=== PATIENT | female | born 1995 | race Caucasian/White ===

== ENCOUNTER 2018-01-06 23:45 | Emergency (ER) | payer MEDICAID ==
[2018-01-07] MEDS ORDERED: Ibuprofen 600 MG Tab PO ONE (00:19)
--- NOTE | 2018-01-07 00:21 | EDM.PDOC ---
ED HPI GENERAL MEDICAL PROBLEM - General Chief Complaint: Lower Extremity Injury/Pain Stated Complaint: [facility] Time Seen by Provider: 01/07/18 00:11 Source of Information: Reports: Patient History Limitations: Reports: No Limitations - History of Present Illness INITIAL COMMENTS - FREE TEXT/NARRATIVE: The patient states that she was walking home from work around 23:00, when she turned to look behind her, twisting her left ankle. She presents with pain to the lateral malleolus. She is otherwise uninjured. No prior similar injury. The patient does not have a PCP. Left Ankle Pain Score (Numeric/FACES): 8 - Related Data Allergies Allergy/AdvReac Type Severity Reaction Status Date / Time No Known Allergies Allergy Verified 01/07/18 00:01 Home Meds: Home Meds . 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) (Ovarian cysts) Endocrine/Metabolic History: Reports: Obesity/BMI 30+ - Past Surgical History HEENT Surgical History: Reports: Tonsillectomy Female Surgical 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 (See Below) (Ovarian cystectomy x 1) Social & Family History - Family History Family Medical History: Noncontributory - Tobacco Use Smoking Status *Q: Current Every Day Smoker Years of Tobacco use: 6 Packs/Tins Daily: 0.2 - Alcohol Use Alcohol Use History: Yes Alcohol Use Frequency: Socially - Recreational Drug Use Recreational Drug Use: Yes Drug Use in Last 12 Months: Yes Recreational Drug Type: Reports: Marijuana/Hashish (last smoked late Nov 2017) - Living Situation & Occupation Living situation: Reports: , with Spouse, with Family (3 kids) Occupation: Employed ([id number]) Review of Systems - Review of Systems Review Of Systems: ROS reveals no pertinent complaints other than HPI. ED EXAM, GENERAL - Physical Exam Exam: See Below Exam Limited By: No Limitations General Appearance: Alert, WD/WN, No Apparent Distress Extremities: Other (No visible abnormality to the left ankle, such as swelling, erythema, ecchymosis, or abrasion. The patient reports tenderness over the lateral malleolus, with less tenderness to the anterior syndesmosis. No tenderness to the medial malleolus or posterior syndesmosis. The patient reports pain to the lateral malleolus area with PROM of the ankle. Neurovascular status of the left lower extremity is intact.) Course - Vital Signs Last Recorded V/S: Last Vital Signs Temp 36.4 C 01/06/18 23:52 Pulse 111 H 01/06/18 23:52 Resp 16 01/06/18 23:52 BP 136/82 01/06/18 23:52 Pulse Ox 100 01/06/18 23:52 - Orders/Labs/Meds Orders: Active Orders 24 hr Category Date Time Status Ankle Min 3V Lt [CR] Stat Exams 01/07/18 00:18 Taken Meds: Medications Discontinued Medications Generic Name Dose Route Start Last Admin Trade Name Dilan PRN Reason Stop Dose Admin Ibuprofen 600 mg 01/07/18 00:19 01/07/18 00:24 Motrin PO 01/07/18 00:20 600 mg ONETIME ONE Administration - Re-Assessments/Exams Free Text/Narrative Re-Assessment/Exam: 01/07/18 00:40 4-view radiographs of the left ankle appear to be normal. No fractures or dislocations identified. Formal read per the Radiologist pending. 01/07/18 00:41 As the patient is complaining of pain with weightbearing, I have ordered an air splint. Departure - Departure Time of Disposition: 00:41 Disposition: Home, Self-Care 01 Condition: Good Clinical Impression: Left ankle sprain - Discharge Information Referrals: Ford Persaud MD [Physician] - Forms: ED Department Discharge Additional Instructions: You were seen in the emergency room after twisting your left ankle. Workup in the ER included x-rays of your left ankle, which returned normal. No broken bones or dislocations. You have likely sprained your left ankle. You have been placed into an air splint. Apply this each morning and remove at bedtime. Wear it for about one week, then begin walking on your ankle without the air splint, even if it is sore. Take [id number] ibuprofen as needed for discomfort. If your ankle continues to hurt after 2 weeks, please follow-up with the Orthopedic Surgeon Dr. Persaud. If any other problems, please do not hesitate to return to the ER. - My Orders Last 24 Hours: My Active Orders 01/07/18 00:18 Ankle Min 3V Lt [CR] Stat - Assessment/Plan Last 24 Hours: My Active Orders 01/07/18 00:18 Ankle Min 3V Lt [CR] Stat
--- NOTE | 2018-01-07 08:44 | CR ---
Left ankle: Four views of the left ankle were obtained. Comparison: No prior study. Spur noted at the attachment of the Achilles tendon to the calcaneus. Ankle mortise is symmetric. No fracture, dislocation or other bony abnormality is seen. Impression: 1. Incidental calcaneal spur. 2. Nothing acute is appreciated on left ankle study. Diagnostic code #2
== END 2018-01-07 01:18 | disposition home or self-care (01) ==
LOC: JD.ED 23:45
DX: S93.402A Sprain of unspecified ligament of left ankle, initial encounter (principal); E66.9 Obesity, unspecified; F17.210 Nicotine dependence, cigarettes, uncomplicated; X50.1XXA Overexertion from prolonged static or awkward postures, initial encounter; Y93.01 Activity, walking, marching and hiking; Y92.009 Unspecified place in unspecified non-institutional (private) residence as the place of occurrence of the external cause
CPT/HCPCS: 73610; 99284; A9270; 99283

== ENCOUNTER 2018-04-07 01:06 | Emergency (ER) | payer OTHER, MEDICAID ==
[2018-04-07] MEDS ORDERED: Sodium Chloride 0.9% 10 ML Syringe FLUSH PRN (01:21)
[2018-04-07] MEDS ORDERED: HYDROmorphone 0.5 MG/0.5 ML SYRINGE IVPUSH ONE ×2 (01:26→03:28)
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
[2018-04-07] MEDS ORDERED: Sodium Chloride 0.9% 1,000 ML IV SCH (01:30)
[2018-04-07] MEDS ORDERED: Ketorolac 30 MG/ML SDV IVPUSH ONE (03:28)
--- NOTE | 2018-04-07 09:18 | CT ---
CT abdomen and pelvis Technique: Multiple axial sections were obtained from above the dome of the diaphragm inferiorly through the pubic symphysis. Intravenous contrast was utilized. No oral contrast has been given. Comparison: No prior CT exam. Findings: Visualized lung bases show nothing acute. Liver is generous in size and shows diffuse fatty infiltration. Hyperdense nodule is identified within the upper right lobe of the liver measuring approximately 1.4 cm. This may represent flash filling of a hemangioma. Given the patient's age as well as this being the only abnormality this is felt to be benign. Spleen measures slightly prominent at 14.4 cm. Adrenal glands show no nodule. Pancreas is normal. Gallbladder contains no calcified gallstones. Adrenal glands show no nodule. Kidneys show symmetric contrast enhancement without hydronephrosis. Small nonobstructing calculus measuring less than 5 mm seen within the left kidney. Aorta shows no aneurysmal dilatation. Small fat-containing umbilical hernia is seen. No retroperitoneal adenopathy is seen. Essure devices are incidentally noted. No pelvic mass or adenopathy is seen. Appendix not definitely visualized. Delayed images show contrast within the bladder. Small bony density seen off the inferior's aspect of the sacrum at the sacroiliac joint on the right side possibly due to small fracture. Sclerosis seen within both sacroiliac joints felt to be benign and incidental. Impression: 1. Small bony density off the inferior right sacrum at the sacroiliac joint possibly due to fracture. 2. Other findings which are felt to be incidental as noted above. Diagnostic code #3 I agree with preliminary report from [facility], finalized at 04/07/18, 4:14 AM Central Time
== END 2018-04-07 04:10 | disposition home or self-care (01) ==
LOC: JD.ED 01:06
DX: S38.1XXA Crushing injury of abdomen, lower back, and pelvis, initial encounter (principal); S32.10XA Unspecified fracture of sacrum, initial encounter for closed fracture; Z88.0 Allergy status to penicillin; W23.0XXA Caught, crushed, jammed, or pinched between moving objects, initial encounter; Y92.481 Parking lot as the place of occurrence of the external cause
CPT/HCPCS: 36415; 74177; 80053; 83690; 84703; 85025; 96361; 96374; 96375; 96376; 99284; J1170; J1885; J7040; J7050

== ENCOUNTER 2018-04-29 12:37 | Emergency (ER) | payer MEDICAID ==
[2018-04-29] MEDS ORDERED: Sodium Chloride 0.9% 10 ML Syringe FLUSH PRN (12:58)
[2018-04-29] MEDS ORDERED: Ketorolac 30 MG/ML SDV IVPUSH ONE (13:03)
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
--- NOTE | 2018-04-29 15:21 | CR ---
Chest: Two views of the chest were obtained. Comparison: No prior chest x-ray. Heart size and mediastinum are within normal limits. Lungs are clear. Incidental azygos lobe is noted. Bony structures appear within normal limits for the patient's age. Impression: 1. Nothing acute is seen on two-view chest x-ray. Diagnostic code #1
[2018-04-29] MEDS ORDERED: Alum Hydrox/Mag Hydrox/Simeth 30 ML, Lidocaine 2% 15 ML PO ONE ×2 (15:27)
[2018-04-29] MEDS ORDERED: Dicyclomine 20 MG/2 ML SDV IM ONE (15:27)
[2018-04-29] MEDS ORDERED: Ondansetron 4 MG/2 ML SDV IVPUSH ONE (15:29)
== END 2018-04-29 17:16 | disposition home or self-care (01) ==
LOC: JD.ED 12:37
DX: R07.2 Precordial pain (principal); R10.9 Unspecified abdominal pain; Z88.0 Allergy status to penicillin; Z79.899 Other long term (current) drug therapy
CPT/HCPCS: 36415; 71046; 80053; 81001; 83690; 84443; 84484; 84703; 85025; 85379; 93005; 96372; 96374; 96375; 99285; A9270; J0500; J1885; J2405; J7050; 93010; 99284

== ENCOUNTER 2018-05-19 14:16 | Emergency (ER) | payer MEDICAID ==
[2018-05-19] MEDS ORDERED: Ondansetron 4 MG/2 ML SDV IVPUSH ONE ×2 (15:01→19:26)
[2018-05-19] MEDS ORDERED: Sodium Chloride 0.9% 1,000 ML IV SCH ×2 (15:15→16:30)
[2018-05-19] MEDS ORDERED: Ketorolac 30 MG/ML SDV IVPUSH SCH (15:15)
[2018-05-19] MEDS: Sodium Chloride 0.9% 10 ML Syringe FLUSH PRN ×2 (15:18→17:43)
--- NOTE | 2018-05-19 16:01 | EDM.PDOC ---
ED HPI GENERAL MEDICAL PROBLEM - General Chief Complaint: General Stated Complaint: [facility] Time Seen by Provider: 05/19/18 14:50 Source of Information: Reports: Patient, RN Notes Reviewed - History of Present Illness INITIAL COMMENTS - FREE TEXT/NARRATIVE: 22 year old female started with nausea last evening, than diarrhea, than vomiting. Continues to feel ill today. Now having abd pain, more R upper abd than R lower abd. Diarrhea is watery. No one else ill around home. no fever. Mouth feels dry. Continus with severe nauesea, abd pain with cramping. Right Upper Abdominal Pain Score (Numeric/FACES): 10 - Related Data Allergies Allergy/AdvReac Type Severity Reaction Status Date / Time Penicillins Allergy Hives Verified 05/19/18 14:22 Home Meds: Home Meds Cyclobenzaprine [Flexeril] 10 mg PO Q8H PRN 04/29/18 [History] Ibuprofen 800 mg PO Q6H PRN 04/29/18 [History] Acetaminophen/HYDROcodone [[place] 325-5 MG] 1 tab PO Q6H PRN #10 tablet 05/19/18 [Rx] Ciprofloxacin HCl [Cipro] 500 mg PO Q12HR #10 tablet 05/19/18 [Rx] traMADol [Ultram] 50 mg PO Q6H PRN 05/19/18 [History] Past Medical History - Past Health History Medical/Surgical History: Denies Medical/Surgical History HEENT History: Reports: None Genitourinary 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 (See Below) Other Genitourinary History: ovarian cysts 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 MENDER 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 (See Below) Other FINISH MENDER History: ovarian cyst Musculoskeletal History: Reports: Fracture Other Musculoskeletal History: ankle and tailbone Endocrine/Metabolic History: Reports: Obesity/BMI 30+ - Past Surgical History HEENT Surgical History: Reports: Tonsillectomy Female Surgical 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 (See Below) Musculoskeletal Surgical History: Reports: None Social & Family History - Family History Family Medical History: Noncontributory - Tobacco Use Smoking Status *Q: Current Some Day Smoker Years of Tobacco use: 11 Packs/Tins Daily: 0.1 - Caffeine Use Caffeine Use: Reports: Coffee, Soda - Recreational Drug Use Recreational Drug Use: No - Living Situation & Occupation Living situation: Reports: , with Spouse, with Family (3 kids) Occupation: Employed ([employer]) ED ROS GENERAL - Review of Systems Review Of Systems: See Below Constitutional: Reports: Chills. Denies: Fever HEENT: Reports: No Symptoms Respiratory: Denies: Shortness of Breath, Pleuritic Chest Pain, Cough Cardiovascular: Denies: Chest Pain GI/Abdominal: Reports: Abdominal Pain, Diarrhea, Nausea, Vomiting Musculoskeletal: Reports: Other (achiness) Skin: Reports: No Symptoms Neurological: Reports: Dizziness. Denies: Headache ED EXAM, GENERAL - Physical Exam Exam: See Below General Appearance: Alert, Moderate Distress Eye Exam: Bilateral Eye: PERRL Throat/Mouth: Normal Inspection, Other (oral mucosa mildly dry) Head: Normocephalic Neck: Supple, Full Range of Motion Respiratory/Chest: No Respiratory Distress, Lungs Clear, Normal Breath Sounds Cardiovascular: Tachycardia GI/Abdominal: Soft, Rebound (mild), Tender (diffuse tenderness upper and lower abd, more tender RLQ). No: Guarding Back Exam: No: CVA Tenderness (L), CVA Tenderness (R) Extremities: Normal Inspection, Normal Range of Motion Neurological: Alert, Oriented, No Motor/Sensory Deficits Skin Exam: Warm, Dry, Normal Color Course - Vital Signs Last Recorded V/S: Last Vital Signs Temp 99.1 F 05/19/18 14:20 Pulse 112 H 05/19/18 14:20 Resp 16 05/19/18 14:20 BP 145/94 H 05/19/18 14:20 Pulse Ox 99 05/19/18 14:20 - Orders/Labs/Meds Labs: Laboratory Tests 05/19/18 05/19/18 05/19/18 Range/Units 15:15 15:15 15:15 WBC 10.29 H (3.98-10.04) K/mm3 RBC 5.15 (3.98-5.22) M/mm3 Hgb 14.5 (11.2-15.7) gm/L Hct 43.6 (34.1-44.9) % MCV 84.7 (79.4-94.8) fl MCH 28.2 (25.6-32.2) pg MCHC 33.3 (32.2-35.5) g/dl RDW Std Deviation 40.9 (36.4-46.3) fL Plt Count 283 (182-369) K/mm3 MPV 9.4 (9.4-12.3) fl Neut % (Auto) 59.0 (34.0-71.1) % Lymph % (Auto) 29.3 (19.3-51.7) % [place] % (Auto) 6.4 (4.7-12.5) % Eos % (Auto) 4.9 (0.7-5.8) Baso % (Auto) 0.2 (0.1-1.2) % Neut # (Auto) 6.08 (1.56-6.13) K/mm3 Lymph # (Auto) 3.01 (1.18-3.74) K/mm3 [place] # (Auto) 0.66 H (0.24-0.36) K/mm3 Eos # (Auto) 0.50 H (0.04-0.36) K/mm3 Baso # (Auto) 0.02 (0.01-0.08) K/mm3 Sodium 138 (136-145) mEq/L Potassium 4.3 (3.5-5.1) mEq/L Chloride 106 (98-107) mEq/L Carbon Dioxide 22 (21-32) mEq/L Anion Gap 14.3 (5-15) BUN 13 (7-18) mg/dL Creatinine 0.8 (0.55-1.02) mg/dL Est Cr Clr Drug Dosing 81.82 mL/min Estimated GFR (MDRD) > 60 (>60) mL/min BUN/Creatinine Ratio 16.3 (14-18) Glucose 83 (74-106) mg/dL Calcium 8.8 (8.5-10.1) mg/dL Total Bilirubin 0.6 (0.2-1.0) mg/dL AST 32 (15-37) U/L ALT 56 (14-59) U/L Alkaline Phosphatase 55 (46-116) U/L C-Reactive Protein 0.5 (<1.0) mg/dL Total Protein 7.4 (6.4-8.2) g/dl Albumin 3.8 (3.4-5.0) g/dl Globulin 3.6 gm/dL Albumin/Globulin Ratio 1.1 (1-2) Meds: Medications Discontinued Medications Generic Name Dose Route Start Last Admin Trade Name Freq PRN Reason Stop Dose Admin Diatrizoate Meglum/Diatrizoate Sod 90 ml 05/19/18 16:34 05/19/18 17:43 Gastrografin 37% PO 05/19/18 16:35 90 ml ONETIME ONE Administration Diphenhydramine HCl 25 mg 05/19/18 20:36 05/19/18 20:42 Benadryl PO 05/19/18 20:37 25 mg ONETIME ONE Administration Hydromorphone HCl 0.5 mg 05/19/18 16:24 05/19/18 16:53 Dilaudid IVPUSH 05/19/18 16:25 0.5 mg ONETIME ONE Administration Hydromorphone HCl 0.5 mg 05/19/18 19:26 05/19/18 19:44 Dilaudid IVPUSH 05/19/18 19:27 0.5 mg ONETIME ONE Administration Sodium Chloride 1,000 mls @ 999 mls/hr 05/19/18 15:15 05/19/18 15:19 Normal Saline IV 999 mls/hr ONETIME EDINSON Administration Sodium Chloride 1,000 mls @ 150 mls/hr 05/19/18 16:30 05/19/18 16:53 Normal Saline IV 150 mls/hr ASDIRECTED EDINSON Administration Iopamidol 125 ml 05/19/18 16:34 05/19/18 17:43 Isovue-300 (61%) IVPUSH 05/19/18 16:35 125 ml ONETIME ONE Administration Ketorolac Tromethamine 30 mg 05/19/18 15:15 05/19/18 15:19 Toradol IVPUSH 30 mg ONETIME EDINSON Administration Metoclopramide HCl 5 mg 05/19/18 16:24 05/19/18 16:52 Reglan IVPUSH 05/19/18 16:25 5 mg ONETIME ONE Administration Ondansetron HCl 4 mg 05/19/18 15:01 05/19/18 15:19 Zofran IVPUSH 05/19/18 15:02 4 mg ONETIME ONE Administration Ondansetron HCl 4 mg 05/19/18 19:26 05/19/18 19:43 Zofran IVPUSH 05/19/18 19:27 4 mg ONETIME ONE Administration Sodium Chloride 10 ml 05/19/18 15:01 05/19/18 17:43 Saline Flush FLUSH 10 ml ASDIRECTED PRN Administration Keep Vein Open Sodium Chloride 10 ml 05/19/18 16:34 05/19/18 19:44 Saline Flush FLUSH 05/19/18 16:35 10 ml ONETIME ONE Administration - Re-Assessments/Exams Free Text/Narrative Re-Assessment/Exam: 05/19/18 19:40 CT of abd pelvis neg for appendicitis, does show fluid in the colon, mild colitis. Have treated with nausea, pain meds, IV fluids, discharge instr. as documented. Departure - Departure Time of Disposition: 16:19 Disposition: Home, Self-Care 01 Condition: Fair Clinical Impression: Colitis Abdominal pain Qualifiers: Abdominal location: generalized Qualified Code(s): R10.84 - Generalized abdominal pain - Discharge Information Prescriptions: Ciprofloxacin HCl [Cipro] 500 mg PO Q12HR #10 tablet Acetaminophen/HYDROcodone [[place] 325-5 MG] 1 tab PO Q6H PRN #10 tablet PRN Reason: Pain Instructions: Abdominal Pain, Adult, Colitis Referrals: Yvrose Chan PA-C [Primary Care Provider] - Forms: ED Department Discharge Additional Instructions: clear liquids for the next 24 hours, than careful bland diet as tolerated, cipro antibiotic 500 mg twice daily for 5 days, begin probiotic and take that twice daily for 1 week. tylenol for mild to moderate pain or hydrocodone if needed for severe pain. Do not take tylenol and hydrcodone at the same time. Do not drive or work when taking hydrocodone. Follow up clinic if not much better within 2 to 3 days as expected.
[2018-05-19] MEDS ORDERED: Metoclopramide 10 MG/2 ML SDV IVPUSH ONE (16:24)
[2018-05-19] MEDS ORDERED: HYDROmorphone 0.5 MG/0.5 ML SYRINGE IVPUSH ONE ×2 (16:24→19:26)
[2018-05-19] MEDS ORDERED: Diatrizoate Meglumine/Diatrizoate Sodium 37% 120 ML Bottle PO ONE (16:34)
[2018-05-19] MEDS ORDERED: Iopamidol 612 MG/ML 150 ML Bottle IVPUSH ONE (16:34)
[2018-05-19] MEDS ORDERED: Sodium Chloride 0.9% 10 ML Syringe FLUSH ONE (16:34)
[2018-05-19] MEDS ORDERED: diphenhydrAMINE 25 MG Cap PO ONE (20:36)
--- NOTE | 2018-05-20 09:20 | CT ---
CT abdomen and pelvis Technique: Multiple axial sections were obtained from above the dome of the diaphragm inferiorly through the pubic symphysis. Intravenous and oral contrast was utilized. Comparison: Previous CT abdomen and pelvis exam of 04/07/18. Findings: Visualized lung bases show nothing acute. Fatty infiltration noted within the liver. No focal abnormality is appreciated within the liver. Spleen appears within normal limits. Adrenal glands show no nodule. Kidneys show symmetric contrast enhancement without hydronephrosis or mass. Small nonobstructing stone noted within the lower left kidney which remains stable. Pancreas is within normal limits. Gallbladder contains no calcified gallstones. Aorta shows no aneurysmal dilatation. No retroperitoneal adenopathy is seen. Appendix not visualized. No free fluid or inflammatory change is seen. Slight amount of fluid seen within the colon or possibly more liquid stool. This is most likely incidental. Bone window settings were reviewed which appear within normal limits for the patient's age. Incidental fat containing umbilical hernia is noted. Impression: 1. Incidental findings as noted above. Nothing acute is appreciated on CT study of the abdomen and pelvis. Agree with preliminary report issued by [facility] finalized on 05/19/18, 7:30 PM Central Time Diagnostic code #2
== END 2018-05-19 20:45 | disposition home or self-care (01) ==
LOC: JD.ED 14:16
DX: K52.9 Noninfective gastroenteritis and colitis, unspecified (principal); F17.210 Nicotine dependence, cigarettes, uncomplicated; Z88.0 Allergy status to penicillin
CPT/HCPCS: 36415; 74177; 80053; 85025; 86140; 96361; 96374; 96375; 96376; 99285; A9270; J1170; J1885; J2405; J2765; J7040; J7050; Q9963; Q9967; 99284

== ENCOUNTER 2018-10-28 01:02 | Emergency (ER) | payer MEDICAID, OTHER ==
[2018-10-28] MEDS ORDERED: Sodium Chloride 0.9% 1,000 ML IV SCH (01:15)
[2018-10-28] MEDS ORDERED: methylPREDNISolone Sodium Succinate 125 MG/2 ML SDV IVPUSH ONE (01:16)
[2018-10-28] MEDS ORDERED: diphenhydrAMINE 50 MG/ML SDV IVPUSH ONE ×2 (01:16→02:01)
[2018-10-28] MEDS ORDERED: Famotidine 20 MG/2 ML SDV IVPUSH ONE (01:16)
[2018-10-28] MEDS ORDERED: HYDROmorphone 1 MG/ML Syringe IVPUSH ONE (01:17)
[2018-10-28] MEDS ORDERED: Metoclopramide 10 MG/2 ML SDV IVPUSH ONE (01:18)
--- NOTE | 2018-10-28 01:56 | EDM.PDOC ---
ED HPI GENERAL MEDICAL PROBLEM - General Chief Complaint: Abdominal Pain Stated Complaint: [facility] Time Seen by Provider: 10/28/18 01:15 Source of Information: Reports: Patient History Limitations: Reports: No Limitations - History of Present Illness INITIAL COMMENTS - FREE TEXT/NARRATIVE: 23-year-old female brought to the ED per ambulance. She has diffuse pruritus of her skin and is been scratching for almost 12 hours. She states symptoms started shortly after noon today. She can't think of anything that she ate that might have set off diffuse itching and hives. She felt her throat was slightly painful and difficult to swallow but not severe now. She did also find it was somewhat difficult to get a deep breath. Her chief complaint at this time is diffuse abdominal pain which is constant with an intermittent colicky component. She has not taken any medications different than the norm. She doesn' t think she ate anything out of the norm either. She has been on no antibiotics in the last 2 weeks. Once her bowel function is usually once every 2-3 days. Stool still seemed to be soft. Onset Date: 10/27/18 Onset Time: 12:00 Duration: Hour(s):, Getting Worse Location: Reports: Generalized (Neurologic pruritus particularly upper back neck anterior chest and upper extremities.) Quality: Reports: Other Severity: Moderate (Moderate mid abdominal pain) Improves with: Reports: None Worsens with: Reports: None Context: Denies: Activity, Exercise, Lifting, Sick Contact, Trauma, Other Associated Symptoms: Reports: Rash (Generalized erythema with severe pruritus of the skin.). 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 (see below) (Takes Motrin 3 times daily since March unlikely to be an allergen.) Bilateral Upper Abdomen Pain Score (Numeric/FACES): 7 - Related Data Allergies Allergy/AdvReac Type Severity Reaction Status Date / Time Penicillins Allergy Hives Verified 10/28/18 01:06 Home Meds: Home Meds Cyclobenzaprine [Flexeril] 10 mg PO Q8H PRN 04/29/18 [History] Ibuprofen 800 mg PO Q6H PRN 04/29/18 [History] Acetaminophen/HYDROcodone [[place] 325-5 MG] 1 tab PO Q6H PRN #10 tablet 05/19/18 [Rx] Ciprofloxacin HCl [Cipro] 500 mg PO Q12HR #10 tablet 05/19/18 [Rx] traMADol [Ultram] 50 mg PO Q6H PRN 05/19/18 [History] Nitrofurantoin Monohyd/M-Cryst [Macrobid 100 mg Capsule] 100 mg PO BID #10 capsule 10/28/18 [Rx] hydrOXYzine HCl [Atarax] 50 mg PO Q6H #12 tab 10/28/18 [Rx] predniSONE [Deltasone] 20 mg PO BID #8 tablet 10/28/18 [Rx] Past Medical History - Past Health History Medical/Surgical History: Denies Medical/Surgical History HEENT History: Reports: None Genitourinary 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 (See Below) Other Genitourinary History: ovarian cysts FORMS BUILDER 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 (See Below) Other FORMS BUILDER History: ovarian cyst Musculoskeletal History: Reports: Fracture Other Musculoskeletal History: ankle and tailbone Endocrine/Metabolic History: Reports: Obesity/BMI 30+ - Past Surgical History HEENT Surgical History: Reports: Tonsillectomy Female Surgical 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 (See Below) Musculoskeletal Surgical History: Reports: None Social & Family History - Family History Family Medical History: Noncontributory - Caffeine Use Caffeine Use: Reports: Coffee, Soda - Living Situation & Occupation Living situation: Reports: , with Spouse, with Family (3 kids) Occupation: Employed ([employer]) [facility] - Review of Systems Review Of Systems: See Below Constitutional: Reports: Malaise, Weakness, Fatigue. Denies: Fever, Chills HEENT: Reports: No Symptoms Respiratory: Reports: No Symptoms Cardiovascular: Reports: No Symptoms Endocrine: Reports: Fatigue GI/Abdominal: Reports: Abdominal Pain (Mostly periumbilical intermittent cramping pain.), Constipation (Occasional problems in the past). Denies: Diarrhea, Decreased Appetite, Difficulty Swallowing, Hematemesis, Hematochezia, Melena, Nausea, Vomiting : Reports: No Symptoms Musculoskeletal: Reports: Back Pain, Joint Pain (Knees hips at times) Skin: Reports: Other (Currently experiencing generalized erythema and pruritus.) Neurological: Reports: No Symptoms Psychiatric: Reports: No Symptoms Hematologic/Lymphatic: Reports: No Symptoms Immunologic: Reports: No Symptoms ED EXAM, GI/ABD - Physical Exam Exam: See Below Exam Limited By: No Limitations General Appearance: Alert, WD/WN, Moderate Distress (Can't stop scratching her back, shoulders, anterior chest and both upper extremities.) Eyes: Bilateral: Normal Appearance (No periorbital swelling) Ears: Normal TMs Throat/Mouth: Other Head: Atraumatic (Reveal a normal tongue normal and for the mouth is normal.), Normocephalic Neck: Normal Inspection, Supple, Non-Tender, Full Range of Motion. No: Lymphadenopathy (L), Lymphadenopathy (R) Respiratory/Chest: No Respiratory Distress, Lungs Clear, Normal Breath Sounds, No Accessory Muscle Use. No: Wheezing Cardiovascular: Normal Peripheral Pulses, No Edema, No Gallop, No Murmur GI/Abdominal Exam: Tender ( Palpate solid organs. development lead to the right of the umbilicus. ), Abnormal Bowel Sounds, Other (Slightly hyperactive bowel sounds. Morbidly obese.). No: Guarding, Rigid (No guarding or rigidity. ), Rebound Back Exam: Other (Has been scratching entire back and it is filled with superficial scratches. It is mildly erythematous) Extremities: Other (Skin is quite dry in her extremities both legs and arms. She 's been scratching her upper extremities quite extensively with the nail scratches.) Neurological: Alert, Oriented, CN II-XII Intact, Normal Cognition Psychiatric: Normal Affect, Normal Mood Skin Exam: Warm, Dry, Intact, Normal Color, No Rash Course - Vital Signs Last Recorded V/S: Last Vital Signs Temp 36.7 C 10/28/18 01:07 Pulse 96 10/28/18 01:07 Resp 13 10/28/18 01:07 BP 130/77 10/28/18 01:07 Pulse Ox 98 10/28/18 01:07 - Orders/Labs/Meds Orders: Active Orders 24 hr Category Date Time Status Abdomen 1V Flat [CR] Stat Exams 10/28/18 01:17 Taken CULTURE URINE [RM] Stat Lab 10/28/18 01:59 Received Labs: Laboratory Tests 10/28/18 10/28/18 10/28/18 Range/Units 01:00 01:00 01:59 WBC 10.26 H (3.98-10.04) K/mm3 RBC 4.88 (3.98-5.22) M/mm3 Hgb 13.7 (11.2-15.7) gm/L Hct 41.3 (34.1-44.9) % MCV 84.6 (79.4-94.8) fl MCH 28.1 (25.6-32.2) pg MCHC 33.2 (32.2-35.5) g/dl RDW Std Deviation 39.9 (36.4-46.3) fL Plt Count 278 (182-369) K/mm3 MPV 9.4 (9.4-12.3) fl Neutrophils % (Manual) 56 (40-60) % Band Neutrophils % 2 (0-10) % Lymphocytes % (Manual) 35 (20-40) % Atypical Lymphs % 0 % Monocytes % (Manual) 4 (2-10) % Eosinophils % (Manual) 3 (0.7-5.8) % Basophils % (Manual) 0 L (0.1-1.2) Toxic Granulation 1+ slight Platelet Estimate Adequate Plt Morphology Comment Normal RBC Morph Comment Normal Sodium 141 (136-145) mEq/L Potassium 3.6 (3.5-5.1) mEq/L Chloride 105 (98-107) mEq/L Carbon Dioxide 24 (21-32) mEq/L Anion Gap 15.6 H (5-15) BUN 16 (7-18) mg/dL Creatinine 0.8 (0.55-1.02) mg/dL Est Cr Clr Drug Dosing 81.12 mL/min Estimated GFR (MDRD) > 60 (>60) mL/min BUN/Creatinine Ratio 20.0 H (14-18) Glucose 91 (74-106) mg/dL Calcium 8.8 (8.5-10.1) mg/dL Total Bilirubin 0.9 (0.2-1.0) mg/dL AST 19 (15-37) U/L ALT 44 (14-59) U/L Alkaline Phosphatase 58 (46-116) U/L C-Reactive Protein 1.3 H* (<1.0) mg/dL Total Protein 7.3 (6.4-8.2) g/dl Albumin 3.8 (3.4-5.0) g/dl Globulin 3.5 gm/dL Albumin/Globulin Ratio 1.1 (1-2) Lipase 77 (73-393) U/L Urine Color Yellow (Yellow) Urine Appearance Slt cloudy H (Clear) Urine pH 6.0 (5.0-8.0) Ur Specific [place] 1.025 (1.005-1.030) Urine Protein Trace H (Negative) Urine Glucose (UA) Negative (Negative) Urine Ketones Negative (Negative) Urine Occult Blood Negative (Negative) Urine Nitrite Positive H (Negative) Urine Bilirubin Negative (Negative) Urine Urobilinogen 0.2 (0.2-1.0) Ur Leukocyte Esterase 1+ H (Negative) Urine RBC 0-5 (0-5) /hpf Urine WBC 10-20 H (0-5) /hpf Ur Epithelial Cells Not Reportable Ur Squamous Epith Cells 5-10 H (0-5) /hpf Urine Bacteria Many H (FEW) /hpf Urine Mucus Few (FEW) /hpf Urine HCG, Qual (NEGATIVE) 10/28/18 Range/Units 01:59 WBC (3.98-10.04) K/mm3 RBC (3.98-5.22) M/mm3 Hgb (11.2-15.7) gm/L Hct (34.1-44.9) % MCV (79.4-94.8) fl MCH (25.6-32.2) pg MCHC (32.2-35.5) g/dl RDW Std Deviation (36.4-46.3) fL Plt Count (182-369) K/mm3 MPV (9.4-12.3) fl Neutrophils % (Manual) (40-60) % Band Neutrophils % (0-10) % Lymphocytes % (Manual) (20-40) % Atypical Lymphs % % Monocytes % (Manual) (2-10) % Eosinophils % (Manual) (0.7-5.8) % Basophils % (Manual) (0.1-1.2) Toxic Granulation Platelet Estimate Plt Morphology Comment RBC Morph Comment Sodium (136-145) mEq/L Potassium (3.5-5.1) mEq/L Chloride (98-107) mEq/L Carbon Dioxide (21-32) mEq/L Anion Gap (5-15) BUN (7-18) mg/dL Creatinine (0.55-1.02) mg/dL Est Cr Clr Drug Dosing mL/min Estimated GFR (MDRD) (>60) mL/min BUN/Creatinine Ratio (14-18) Glucose (74-106) mg/dL Calcium (8.5-10.1) mg/dL Total Bilirubin (0.2-1.0) mg/dL AST (15-37) U/L ALT (14-59) U/L Alkaline Phosphatase (46-116) U/L C-Reactive Protein (<1.0) mg/dL Total Protein (6.4-8.2) g/dl Albumin (3.4-5.0) g/dl Globulin gm/dL Albumin/Globulin Ratio (1-2) Lipase (73-393) U/L Urine Color (Yellow) Urine Appearance (Clear) Urine pH (5.0-8.0) Ur Specific [place] (1.005-1.030) Urine Protein (Negative) Urine Glucose (UA) (Negative) Urine Ketones (Negative) Urine Occult Blood (Negative) Urine Nitrite (Negative) Urine Bilirubin (Negative) Urine Urobilinogen (0.2-1.0) Ur Leukocyte Esterase (Negative) Urine RBC (0-5) /hpf Urine WBC (0-5) /hpf Ur Epithelial Cells Ur Squamous Epith Cells (0-5) /hpf Urine Bacteria (FEW) /hpf Urine Mucus (FEW) /hpf Urine HCG, Qual Negative (NEGATIVE) Meds: Medications Discontinued Medications Generic Name Dose Route Start Last Admin Trade Name Freq PRN Reason Stop Dose Admin Diphenhydramine HCl 50 mg 10/28/18 01:16 10/28/18 01:26 Benadryl IVPUSH 10/28/18 01:17 50 mg ONETIME ONE Administration Diphenhydramine HCl 50 mg 10/28/18 02:01 10/28/18 02:10 Benadryl IVPUSH 10/28/18 02:02 50 mg ONETIME ONE Administration Famotidine 20 mg 10/28/18 01:16 10/28/18 01:28 Pepcid IVPUSH 10/28/18 01:17 20 mg ONETIME ONE Administration Hydromorphone HCl 0.5 mg 10/28/18 01:17 10/28/18 01:31 Dilaudid IVPUSH 10/28/18 01:18 0.5 mg ONETIME ONE Administration Hydroxyzine HCl 50 mg 10/28/18 03:03 10/28/18 03:13 Atarax PO 10/28/18 03:04 50 mg ONETIME ONE Administration Sodium Chloride 1,000 mls @ 999 mls/hr 10/28/18 01:15 10/28/18 01:26 Normal Saline IV 999 mls/hr ASDIRECTED EDINSON Administration Levofloxacin 500 mg 10/28/18 03:02 10/28/18 03:13 Levaquin PO 10/28/18 03:03 500 mg ONETIME ONE Administration Lorazepam 1 mg 10/28/18 03:18 10/28/18 03:26 Ativan IVPUSH 10/28/18 03:19 1 mg ONETIME ONE Administration Magnesium Citrate 240 ml 10/28/18 03:02 10/28/18 03:13 Citrate Of Magnesia PO 10/28/18 03:03 240 ml ONETIME ONE Administration Methylprednisolone Sodium Succinate 125 mg 10/28/18 01:16 10/28/18 01:27 Solu-Medrol IVPUSH 10/28/18 01:17 125 mg ONETIME ONE Administration Metoclopramide HCl 10 mg 10/28/18 01:18 10/28/18 01:30 Reglan IVPUSH 10/28/18 01:19 10 mg ONETIME ONE Administration Ondansetron HCl 4 mg 10/28/18 03:17 10/28/18 03:22 Zofran IVPUSH 10/28/18 03:18 4 mg ONETIME ONE Administration - Radiology Interpretation Free Text/Narrative:: 23-year-old female presents the ED per ambulance with 2 complaints one is generalized pruritus particularly involving her upper extremities her back face and anterior chest. Still feels it on her lower extremities but has not been scratching this area. The pruritus and presumably hives by history started about noon yesterday and are very intensely pruritic. She hasn't taken any medication for the itching. The source of the breakout of hives is on clear. She 's been taking Motrin 3 times daily since March. She is on no new medications she has not been on any antibiotics in the last month. She doesn't think that she's eaten anything new in the not family seafood family a red food dye family that could is precipitated hives. He may be viral in origin. Plan IV normal saline at 125 mils per hour. Given Pepcid 20 mg IV, with Benadryl 50 mg IV, and Solu-Medrol 125 mg IV. Second problem is diffuse abdominal pain mostly right upper quadrant. On examination she has very active bowel sounds in all 4 quadrants. Plan 1 view of the abdomen to be obtained. Routine labs - Re-Assessments/Exams Free Text/Narrative Re-Assessment/Exam: 10/28/18 01:56 KUB reveals a large amount of stool in the right hemicolon almost up to the splenic flexure. This appears to be the cause of her abdominal pain. There is no evidence of bowel obstruction. Patient is still trying to scratch almost all of her skin she is exhausted obviously very pruritic. Will repeat Benadryl 50 mg IV as her current weight is 242 lbs. 10/28/18 02:48 Labs reveal a mildly elevated white count at 10.26 with 56% neutrophils and 2% bands reported. Hemoglobin is 13.7 with hematocrit of 41.3. Blood count is 278,000. Sodium 141 with potassium 3.6. Chloride 105 with a bicarbonate 24. Anion gap is 15.6. BUN is 16. Creatinine is 0.8. GFR is greater than 60. Glucose is 91. Calcium is 8.8. Liver function is normal. C-reactive protein is mildly elevated at 1.3. Serum lipase is 77. The urine shows that it is slightly cloudy it is positive for nitrates 1+ leukocyte esterase with 10-20 white blood cells per hpf. in 5-10 squamous epithelial cells. Urine culture ordered on firm questioning the patient denies having any signs or symptoms of a urinary tract infection. Will treat with Levaquin 500 mg by mouth now plans to place her on Macrobid 100 twice a day for the next 5 days. She will also be placed on prednisone 20 mg breakfast and supper for the next 3 days to clear up allergic reaction. Unclear etiology although I suspect a food or red food dye. She will continue Benadryl 50 mg every 6 hours needed for itching. We'll give her hydroxyzine 50 mg by mouth now to help further eradicate the itch. Her erythema is slowly fading. The steroids will start to kick in in about another 2 hours. Will be discharged home with Citroma to take 8 ounces by mouth later this morning to provide bowel cleanse. 10/28/18 03:18 patient is now complaining of nausea. She had Reglan earlier. Will give Zofran 4 mg IV. She still has generalized pruritus. This is in spite of 100 mg of Benadryl IV. I believe some of her symptoms are psychogenic in origin. I'm going to give her Ativan 1 mg IV as well that this time 10/28/18 03:56 patient has fallen asleep after the Ativan IV. His appears to stop the itch scratch cycle Departure - Departure Time of Disposition: 03:14 Disposition: Home, Self-Care 01 Condition: Fair Clinical Impression: Generalized pruritus Acute allergic reaction Qualifiers: Encounter type: initial encounter Qualified Code(s): T78.40XA - Allergy, unspecified, initial encounter Urinary tract infection Qualifiers: Urinary tract infection type: acute cystitis Hematuria presence: without hematuria Qualified Code(s): N30.00 - Acute cystitis without hematuria Constipation Qualifiers: Constipation type: slow transit constipation Qualified Code(s): K59.01 - Slow transit constipation Abdominal pain Qualifiers: Abdominal location: generalized Qualified Code(s): R10.84 - Generalized abdominal pain - Discharge Information *PRESCRIPTION DRUG MONITORING PROGRAM REVIEWED*: Not Applicable *COPY OF PRESCRIPTION DRUG MONITORING REPORT IN PATIENT KALIE: Not Applicable Prescriptions: hydrOXYzine HCl [Atarax] 50 mg PO Q6H #12 tab Nitrofurantoin Monohyd/M-Cryst [Macrobid 100 mg Capsule] 100 mg PO BID #10 capsule predniSONE [Deltasone] 20 mg PO BID #8 tablet Instructions: Urinary Tract Infection, Adult, [id number] Referrals: Yvrose Chan PA-C [Primary Care Provider] - Forms: ED Department Discharge Additional Instructions: Evaluation in the emergency room today in regards to acute allergic reaction with generalized itching particularly of the upper extremities shoulders and back and chest and arms. Source of this allergic reaction is unclear although I strongly suspect it may be food borne. This means something you have eaten in the last 24 hours. Be wary of red food dyes. Any of the nut family. Occasionally it can be a her such as a regular no or other substances added to pizza dough, dessert or something that you rarely eat and have become sensitized too. Irregardless the treatment is the same. Continue Hydroxyzine- 50 mg every 6 hours as needed for relief of itching. Prednisone 20 mg twice daily rectus and supper for the next 4 days. Initial dose of steroid was given intravenously while in the ED. You will need to take magnesium citrate or Citroma 8 ounces by mouth with 5 ounces of juice of choice later this morning to help cleanse the bowel as there is a large amount of stool throughout the right hemicolon on the x-ray. This is felt to be the cause of your current abdominal pain. Lab testing also suggest that you have a low-grade urinary tract infection for which you do not have much symptoms. Initial dose of anabolic Levaquin was given in the ED. He will need to fill a prescription for Macrobid 100 mg twice daily for 5 more days to clear up bladder infection completely. - My Orders Last 24 Hours: My Active Orders 10/28/18 01:17 Abdomen 1V Flat [CR] Stat 10/28/18 01:59 CULTURE URINE [RM] Stat - Assessment/Plan Last 24 Hours: My Active Orders 10/28/18 01:17 Abdomen 1V Flat [CR] Stat 10/28/18 01:59 CULTURE URINE [RM] Stat
[2018-10-28] MEDS ORDERED: Levofloxacin 250 MG Tab PO ONE (03:02)
[2018-10-28] MEDS ORDERED: Magnesium Citrate Solution 296 ML Bottle PO ONE (03:02)
[2018-10-28] MEDS ORDERED: hydrOXYzine HCl 50 MG Tab PO ONE (03:03)
[2018-10-28] MEDS ORDERED: Ondansetron 4 MG/2 ML SDV IVPUSH ONE (03:17)
[2018-10-28] MEDS ORDERED: LORazepam 2 MG/ML SDV IVPUSH ONE (03:18)
--- NOTE | 2018-10-28 07:01 | CR ---
Abdomen: Supine view of the abdomen was obtained. Comparison: No prior abdominal x-ray, previous CT abdomen and pelvis study of 05/19/18. Bowel gas pattern is normal. Essure devices are incidentally noted within the pelvis. Bony structures are unremarkable. No abnormal calcifications or soft tissue abnormality is seen. Impression: 1. Incidental findings. Nothing acute is seen on supine abdominal x-ray. Diagnostic code #2
== END 2018-10-28 04:41 | disposition home or self-care (01) ==
LOC: JD.ED 01:02 → SUPCPDRO 01:02 → JD.ED 04:41
DX: L29.8 Other pruritus (principal); T78.40XA Allergy, unspecified, initial encounter; N30.00 Acute cystitis without hematuria; K59.01 Slow transit constipation; Z88.0 Allergy status to penicillin; Z79.899 Other long term (current) drug therapy
CPT/HCPCS: 36415; 74018; 80053; 81001; 81025; 83690; 85007; 85027; 86140; 87086; 87088; 87186; 96361; 96374; 96375; 96376; 99284; A9270; J1170; J1200; J2060; J2405; J2765; J2930; J3490; J7040

== ENCOUNTER → 2019-01-27 | Day surgery (SDC) | payer MEDICAID ==
[~2019-01-27] MED LIST: Bupivacaine 0.5%/EPINEPHrine 1:200,000 50 ML MDV ONE; Clindamycin Phosphate in D5W 900 MG in Premix Bag 1 BAG IV ONE; Lactated Ringers 1,000 ML IV SCH; Lidocaine 1% 0 ML ONE; Lidocaine 1% with EPINEPHrine 1:100,000 20 ML MDV ONE; Lidocaine 1%/Sod Bicarbonate in NS 8.4% 1 ML Syringe IDERM PRN; Midazolam 1 MG/ML 2 ML SDV ONE; Propofol 200 MG/20 ML SDV ONE; Sodium Chloride 0.9% 10 ML Syringe FLUSH PRN; fentaNYL 250 MCG/5 ML SDV ONE
--- NOTE | 2019-01-27 07:47 | PCM.PREANE ---
Preanesthetic Assessment - Anesthesia/Transfusion/Family Hx Anesthesia History: Prior Anesthesia Without Reaction Family History of Anesthesia Reaction: No Transfusion History: No Prior Transfusion(s) - Review of Systems General: No Symptoms Pulmonary: No Symptoms Cardiovascular: No Symptoms Gastrointestinal: No Symptoms, Abdominal Pain (pain 6) Neurological: No Symptoms Other: Reports: None - Physical Assessment NPO Status Date: 01/26/19 NPO Status Time: 21:00 Pulse: 94 O2 Sat by Pulse Oximetry: 94 Respiratory Rate: 16 Blood Pressure: 119/50 Temperature: 98.9 C ASA Class: 2 Mental Status: Alert & Oriented x3 Airway Class: Mallampati = 2 Dentition: Reports: Normal Dentition (poor hygeine) Thyro-Mental Finger Breadths: 3 Mouth Opening Finger Breadths: 3 ROM/Head Extension: Full Lungs: Clear to Auscultation, Normal Respiratory Effort Cardiovascular: Regular Rate, Regular Rhythm - Lab Values: Laboratory Last Values Urine HCG, Qual Negative (NEGATIVE) 01/27/19 07:15 - Allergies Allergies/Adverse Reactions: Allergies Allergy/AdvReac Type Severity Reaction Status Date / Time Penicillins Allergy Other Verified 01/26/19 12:54 - Acknowledgements Anesthesia Type Planned: General Anesthesia Pt an Appropriate Candidate for the Planned Anesthesia: Yes Alternatives and Risks of Anesthesia Discussed w Pt/Guardian: Yes Pt/Guardian Understands and Agrees with Anesthesia Plan: Yes PreAnesthesia Questionnaire - Past Health History Medical/Surgical History: Denies Medical/Surgical History HEENT History: Reports: None, Other (See Below) Other HEENT History: poor oral hygeine, wears glasses Cardiovascular History: Reports: None Respiratory History: Reports: None Gastrointestinal History: Reports: GERD, Other (See Below) Other Gastrointestinal History: abdominal pain Genitourinary 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 (See Below) Other Genitourinary History: ovarian cysts, laparoscopic oophorectomy, hysteroscopy, laparoscopic ovarian cystectomy FOUNDER / CEO History: Reports: Polycystic Ovaries, Other (See Below) Other OB/BYN History: ovarian cyst Musculoskeletal History: Reports: Fracture Other Musculoskeletal History: closed sacral fracture Neurological History: Reports: None Psychiatric History: Reports: None Endocrine/Metabolic History: Reports: Obesity/BMI 30+ Hematologic History: Reports: None Immunologic History: Reports: None Oncologic (Cancer) History: Reports: None Dermatologic History: Reports: None - Past Surgical History Head Surgeries/Procedures: Reports: None HEENT Surgical History: Reports: Adenoidectomy, Oral Surgery, Tonsillectomy Cardiovascular Surgical History: Reports: None Respiratory Surgical History: Reports: None GI Surgical History: Reports: None Female Surgical 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 (See Below) Other Female Surgeries/Procedures: ovarian cyst removal Endocrine Surgical History: Reports: None Neurological Surgical History: Reports: None Musculoskeletal Surgical History: Reports: None Oncologic Surgical History: Reports: None Dermatological Surgical History: Reports: None - SUBSTANCE USE Smoking Status *Q: Light Tobacco Smoker Recreational Drug Use History: No - HOME MEDS Home Medications: Home Meds Ibuprofen 800 mg PO Q6H PRN 04/29/18 [History] Dicyclomine [Bentyl] 20 mg PO QID 01/26/19 [History] Meloxicam [Mobic] 7.5 mg PO BID 01/26/19 [History] Ondansetron HCl [Zofran] 4 mg PO Q4H PRN 01/26/19 [History] - CURRENT (IN HOUSE) MEDS Current Meds: Current Medications Lactated Ringer's (Ringers, Lactated) 1,000 mls @ 125 mls/hr IV ASDIRECTED EDINSON Stop: 01/27/19 23:00 Lidocaine/Sodium Bicarbonate (Buffered Lidocaine 1% In Ns 8.4%) 0.25 ml IDERM ONETIME PRN PRN Reason: Prior to IV Start Stop: 01/27/19 18:00 Sodium Chloride (Saline Flush) 10 ml FLUSH ASDIRECTED PRN PRN Reason: Keep Vein Open Stop: 01/27/19 18:00 Discontinued Medications Bupivacaine HCl/Epinephrine Bitart (Marcaine 0.5%/Epinephrine 1:200,000) Confirm Administered Dose 50 ml .ROUTE .STK-MED ONE Stop: 01/27/19 07:03 Fentanyl (Sublimaze) Confirm Administered Dose 250 mcg .ROUTE .STK-MED ONE Stop: 01/27/19 07:16 Lidocaine HCl (Xylocaine-Mpf 1%) Confirm Administered Dose 2 mls @ as directed .ROUTE .STK-MED ONE Stop: 01/27/19 07:17 Lidocaine HCl (Xylocaine-Mpf 1%) Confirm Administered Dose 2 mls @ as directed .ROUTE .STK-MED ONE Stop: 01/27/19 07:17 Lidocaine/Epinephrine (Xylocaine 1% With Epinephrine 1:100,000) Confirm Administered Dose 40 ml .ROUTE .STK-MED ONE Stop: 01/27/19 07:03 Midazolam HCl (Versed 1 Mg/Ml) Confirm Administered Dose 2 mg .ROUTE .STK-MED ONE Stop: 01/27/19 07:16 Propofol (Diprivan 20 Ml) Confirm Administered Dose 200 mg .ROUTE .STK-MED ONE Stop: 01/27/19 07:15
--- NOTE | 2019-01-27 08:50 | PCM.SN ---
- Free Text/Narrative Note: Perla presented to preop holding for elective cholecystectomy today. Dr. Lopez has voiced concern related to Perla's chest pain and SOB episodes. She has presented to the ER with intense chest pain in the past. She was instructed to see primary health for a workup related to these episodes. She has not addressed the chest pain with her primary care team. She still does intermittently feel chest tightness and pain/pressure. She states she has anxiety and panic attacks and feels this is all related to the chest pain. She has not told her primary care doctor about her panic attacks. She also feels she may be bipolar. Perla is morbidly obese with a smoking history. I agree with Dr. Lopez's recommendation to have her chest pain evaluated by her primary care doctor prior to proceeding with her surgery today.
== END ==
LOC: JD.SDS 06:45
PROVIDERS: ATTEND Surgery
DX: R10.9 Unspecified abdominal pain (principal); R07.89 Other chest pain; F17.200 Nicotine dependence, unspecified, uncomplicated; E66.01 Morbid (severe) obesity due to excess calories; Z68.42 Body mass index [BMI] 45.0-49.9, adult; Z88.0 Allergy status to penicillin; Z53.8 Procedure and treatment not carried out for other reasons; Z79.1 Long term (current) use of non-steroidal anti-inflammatories (NSAID); Z79.899 Other long term (current) drug therapy
CPT/HCPCS: 81025; 93005; J3490; J7120; J2001; J2250; J2704; J3010

== ENCOUNTER 2019-07-03 06:57 | Day surgery (SDC) | payer MEDICAID ==
[~2019-07-03 06:57] MED LIST changes: -Bupivacaine 0.5%/EPINEPHrine 1:200,000 50 ML MDV ONE; -Clindamycin Phosphate in D5W 900 MG in Premix Bag 1 BAG IV ONE; -Lidocaine 1% 0 ML ONE; -Lidocaine 1% with EPINEPHrine 1:100,000 20 ML MDV ONE; -Midazolam 1 MG/ML 2 ML SDV ONE; -Propofol 200 MG/20 ML SDV ONE; -fentaNYL 250 MCG/5 ML SDV ONE
[2019-07-03] MEDS ORDERED: Propofol 200 MG/20 ML SDV ONE ×2 (07:14→08:10)
[2019-07-03] MEDS ORDERED: fentaNYL 100 MCG/2 ML SDV ONE (07:14)
[2019-07-03] MEDS ORDERED: Midazolam 1 MG/ML 2 ML SDV ONE (07:14)
--- NOTE | 2019-07-03 07:30 | PCM.PREANE ---
Preanesthetic Assessment - Anesthesia/Transfusion/Family Hx Anesthesia History: Prior Anesthesia Without Reaction Transfusion History: No Prior Transfusion(s) - Review of Systems General: No Symptoms, Other (super morbid obese with bmi of 49) Pulmonary: No Symptoms, Other (smokes occasional) Cardiovascular: Chest Pain (during panic attacks) Gastrointestinal: Abdominal Pain, Constipation Neurological: No Symptoms Other: Reports: Liver Problems (fatty liver) - Physical Assessment NPO Status Date: 07/02/19 NPO Status Time: 19:00 Weight: 120.882 kg ASA Class: 3 Mental Status: Alert & Oriented x3 Airway Class: Mallampati = 2 Dentition: Reports: Normal Dentition Thyro-Mental Finger Breadths: 3 Mouth Opening Finger Breadths: 3 ROM/Head Extension: Full Lungs: Clear to Auscultation, Normal Respiratory Effort Cardiovascular: Regular Rate, Regular Rhythm - Lab Values: Laboratory Last Values Urine HCG, Qual Negative (NEGATIVE) 07/03/19 06:10 - Allergies Allergies/Adverse Reactions: Allergies Allergy/AdvReac Type Severity Reaction Status Date / Time Penicillins Allergy Other Verified 01/26/19 12:54 - Blood Blood Available: No Product(s) Available: None - Anesthesia Plan Pre-Op Medication Ordered: None - Acknowledgements Anesthesia Type Planned: MAC Pt an Appropriate Candidate for the Planned Anesthesia: Yes Alternatives and Risks of Anesthesia Discussed w Pt/Guardian: Yes Pt/Guardian Understands and Agrees with Anesthesia Plan: Yes PreAnesthesia Questionnaire - Past Health History Medical/Surgical History: Denies Medical/Surgical History HEENT 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 (See Below) Other HEENT History: poor oral hygeine, wears glasses Cardiovascular History: Reports: None Respiratory History: Reports: None Gastrointestinal History: Reports: GERD, Other (See Below) Other Gastrointestinal History: abdominal pain Genitourinary History: Reports: UTI, Recurrent, Other (See Below) Other Genitourinary History: ovarian cysts, laparoscopic oophorectomy, hysteroscopy, laparoscopic ovarian cystectomy [employer] History: Reports: Polycystic Ovaries, Other (See Below) Other OB/BYN History: ovarian cyst Musculoskeletal History: Reports: Fracture Other Musculoskeletal History: closed sacral fracture Neurological History: Reports: None Psychiatric History: Reports: None Endocrine/Metabolic History: Reports: Obesity/BMI 30+ Hematologic History: Reports: None Immunologic History: Reports: None Oncologic (Cancer) History: Reports: None Dermatologic History: Reports: None - Past Surgical History Head Surgeries/Procedures: Reports: None HEENT Surgical History: Reports: Adenoidectomy, Oral Surgery, Tonsillectomy Cardiovascular Surgical History: Reports: None Respiratory Surgical History: Reports: None GI Surgical History: Reports: None Female Surgical History: Reports: Tubal Ligation, Other (See Below) Other Female Surgeries/Procedures: ovarian cyst removal Endocrine Surgical History: Reports: None Neurological Surgical History: Reports: None Musculoskeletal Surgical History: Reports: None Oncologic Surgical History: Reports: None Dermatological Surgical History: Reports: None - SUBSTANCE USE Smoking Status *Q: Former Smoker Recreational Drug Use History: No - HOME MEDS Home Medications: Home Meds Ibuprofen 800 mg PO Q6H PRN 04/29/18 [History] traMADol [Ultram] 50 mg PO Q8HR PRN 01/27/19 [History] Cyclobenzaprine [Flexeril] 10 mg PO TID PRN 06/30/19 [History] - CURRENT (IN HOUSE) MEDS Current Meds: Current Medications Lactated Ringer's (Ringers, Lactated) 1,000 mls @ 125 mls/hr IV ASDIRECTED EDINSON Stop: 07/03/19 23:00 Lidocaine/Sodium Bicarbonate (Buffered Lidocaine 1% In Ns 8.4%) 0.25 ml IDERM ONETIME PRN PRN Reason: Prior to IV Start Stop: 07/03/19 18:00 Sodium Chloride (Saline Flush) 10 ml FLUSH ASDIRECTED PRN PRN Reason: Keep Vein Open Stop: 07/03/19 18:00 Discontinued Medications Fentanyl (Sublimaze) Confirm Administered Dose 100 mcg .ROUTE .STK-MED ONE Stop: 07/03/19 07:15 Midazolam HCl (Versed 1 Mg/Ml) Confirm Administered Dose 2 mg .ROUTE .STK-MED ONE Stop: 07/03/19 07:15 Propofol (Diprivan 20 Ml) Confirm Administered Dose 200 mg .ROUTE .STK-MED ONE Stop: 07/03/19 07:15
--- NOTE | 2019-07-03 08:39 | PCM48HPAN ---
Post Anesthesia Note - EVALUATION WITHIN 48HRS OF ANESTHETIC Vital Signs in Normal Range: Yes Patient Participated in Evaluation: Yes Respiratory Function Stable: Yes Airway Patent: Yes Cardiovascular Function Stable: Yes Hydration Status Stable: Yes Pain Control Satisfactory: Yes Nausea and Vomiting Control Satisfactory: Yes Mental Status Recovered: Yes Vital Signs: Last Vital Signs Temp 36.7 C 07/03/19 07:15 Pulse 93 07/03/19 07:15 Resp 16 07/03/19 07:15 BP 115/73 07/03/19 07:15 Pulse Ox 95 07/03/19 07:15
--- NOTE | 2019-07-03 10:02 | OR ---
DATE OF OPERATION: 07/03/2019 SURGEON: Gold Chowdhury MD PREOPERATIVE DIAGNOSIS: Generalized abdominal pain, right upper quadrant and left upper quadrant. POSTOPERATIVE DIAGNOSIS: 1. Gastritis. 2. Small hiatal hernia. 3. Esophagitis. OPERATION PERFORMED: Esophagogastroduodenoscopy; diagnostic, with biopsies. ANESTHESIA: Monitored anesthesia. ESTIMATED BLOOD LOSS: Minimal. INDICATIONS AND CONSENT: The patient is a 23-year-old, who has been suffering from abdominal pain of unclear origin for many years. The patient has seen multiple specialties and has undergone extensive workup including CT scans and labs, all without any clear etiology. Her abdominal pain is primarily in the right upper quadrant, but she does also has left upper quadrant abdominal pain. She takes NSAIDs for this pain and she has been dealing with it for many years. Due to this problem, the patient presented to my office and I interviewed the patient in collaboration with Deepali Bosch and it was determined that we should start with upper endoscopy to try to determine the etiology of her abdominal pain. We discussed the case with the patient and the patient agreed to proceed with the procedure. Risks, benefits, and alternatives were discussed and informed consent was obtained. DESCRIPTION OF PROCEDURE: The patient was brought into the procedure room, placed in left lateral decubitus position. Following induction of monitored anesthesia, the upper endoscope was advanced through the mouth into the esophagus to the stomach and to the first and second portions of the duodenum. The duodenum appeared to be normal with likely slight inflammation of the mucosa; therefore, a biopsy was taken for histology. She had inflammation of the antrum; therefore, biopsies were taken of the antrum. She had inflammation of the gastric fundus and body. Biopsies were taken from the gastric fundus for histologic review. The scope was retroflexed and a small to medium-sized hiatal hernia was visualized. The scope was withdrawn back to the GE junction, which was about 37 cm from incisors. This appeared intact and biopsies were taken from this for further pathologic examination. Distal esophagus appeared to be consistent with gastritis, LA grade A, and biopsies were taken from here for histology. Mid esophagus also had mild esophagitis; therefore, biopsies were taken for review. At this point, the rest of the entire esophagus appeared to be normal and the scope was slowly withdrawn, clearly visualizing the entirety of the esophagus. The patient tolerated the procedure well. There were no immediate complications. All biopsied were taken with cold forceps. RECOMMENDATIONS: The patient to stop taking NSAIDs and start taking PPIs, and she will follow up with Deepali Bosch for review of her pathology in 2 weeks. IMPRESSION: 1. Possible duodenitis, biopsied. 2. Gastritis diffuse, biopsied. 3. Esophagitis in distal esophagus and mid esophagus, biopsied. MMODAL /[id number]
== END 2019-07-03 09:30 | disposition home or self-care (01) ==
LOC: JD.SDS 06:57
PROVIDERS: ATTEND Surgery
DX: K29.50 Unspecified chronic gastritis without bleeding (principal); K44.9 Diaphragmatic hernia without obstruction or gangrene; K21.0 Gastro-esophageal reflux disease with esophagitis; E66.01 Morbid (severe) obesity due to excess calories; Z79.899 Other long term (current) drug therapy; Z88.0 Allergy status to penicillin; Z87.891 Personal history of nicotine dependence; Z68.42 Body mass index [BMI] 45.0-49.9, adult
CPT/HCPCS: 43239; 81025; J2250; J2704; J7120; 00731; J3010